=== PATIENT | female | born 1930 | race Caucasian/White ===

== ENCOUNTER 2016-09-12 14:58 | Inpatient (IN) ==
--- NOTE | 2016-09-12 15:02 | Emergency Department Note ---
Disposition Clinical Impression: Altered mental status Qualifiers: Altered mental status type: disorientation Qualified Code(s): R41.0 - Disorientation, unspecified Urinary tract infection Qualifiers: Urinary tract infection type: acute cystitis Hematuria presence: without hematuria Qualified Code(s): N30.00 - Acute cystitis without hematuria Disposition: Admitted As Inpatient Condition: Fair Altered Mental Status HPI - General Chief Complaint: ED Altered Mental Status Stated Complaint: confusion Time Seen by Provider: 09/12/16 15:00 Source: patient, family, EMS Mode of arrival: EMS Limitations: altered mental status, physical limitation, age Nursing Notes Reviewed: Yes Vital Signs Reviewed: Yes - History of Present Illness HPI Narrative: Patient has had poor increased confusion since getting up at 8 AM this morning. She has not had focal weakness or new pain. With persistence of the confusion squad was called to have her brought in for evaluation. They found her to be nonfocal on neurologic exam and had stable vital signs with a saturation of 96% on room air heart rate of 80 and a blood pressure 179/98. They did transmit to EKGs, the first at 2:47 PM and the second at 2:54 PM. These both demonstrated a sinus rhythm with a rate of around 80, axis LXXVII, DC interval 110, QT QTC 372/4:15. Chest prominent tremor/artifact. It does appear to be some LVH but no other acute changes are seen. This is on my interpretation the patient denies any specific complaint on arrival to our emergency department. She does scream with removal of the monitor tracing pads that were placed by the EMS. She does not have any apparent new injury or trauma. History is extremely unreliable from this patient. We are awaiting arrival of family for better clarification of the events of the day. 1515: Patient's son advises that he had visited her at about 7:30 in the morning and she would talk and occasional gibberish and then would seem to be normal. He states there was not a slurring of speech she came out with strings of word salad without apparent content. She does report that she still continues to have recurrent falls and did fall and hit her head on Wednesday, one week ago, when she was getting out of bed. They noted that she "seemed okay" and did not pursue other evaluation. She has not been having fevers, chills, cough, chest pain or shortness of breath. She has not been having abdominal pain, nausea, vomiting or diarrhea. She has had a normal intake for her. She is not complaining of headaches or neck pain. She has reportedly had normal urination. She recently has been doing very well with regard to her mental status and had been "walking good". Her son notes she always has chronic pain in her left low back and hip area from where she had fallen pubic fracture in January. He does not note any other changes to her recent condition. He states that she is on some Tylenol with Codeine, but that she has been on that for about 3 weeks. He denies any other change to her medications. MD complaint: altered mental status, confusion Onset (ago): hour(s) (7) Timing confirmed by: family member Pain Severity: none Consistency of Symptoms: waxing and waning, getting worse Associated symptoms: Reports: weakness. Denies: chest pain, cough, diaphoresis , fever, chills, headaches, loss of appetite, malaise, nausea/vomiting, rash, seizure, shortness of breath, syncope, foul smelling urine, difficulty walking, diarrhea, incontinence - Related Data Home Medications Medication Instructions Recorded Confirmed Docusate Sodium [Stool Softener] 100 mg PO DAILY PRN 04/10/15 09/12/16 Fluticasone Propionate Nasal 50 mcg NS DAILY PRN 04/10/15 09/12/16 [Flonase] Levothyroxine [Synthroid] 88 mcg PO 0630 02/27/16 09/12/16 Meloxicam 15 mg PO DAILY 06/22/16 09/12/16 Acetaminophen w/Cod 300-30 mg 1 each PO Q6HR 08/24/16 09/12/16 [Tylenol w/Codeine #3] Allergies Allergy/AdvReac Type Severity Reaction Status Date / Time Sulfa (Sulfonamide Allergy Rash Verified 08/24/16 14:20 Antibiotics) Limitations: ROS unobtainable due to patients medical condition Past Medical History - Past Medical History Source: old records reviewed, obtained from family, nursing notes reviewed Medical history: Reports: arthritis, dementia, osteoporosis, thyroid disease Surgical history: Reports: orthopedic, other (Wrist surgery, left hip replacement) Psychiatric history: Reports: no psych history LITERACY CONSULTANT history: Reports: no LITERACY CONSULTANT history - Social History Smoking Status: Never smoker Smokeless Tobacco Status: No Alcohol use: Reports: none Drug use: Reports: none Physical Exam - General Limitations: altered mental status, age General appearance: alert, anxious - Head Head exam: atraumatic, normocephalic, normal inspection - Eye Eye exam: Present: normal appearance, PERRL, EOMI. Absent: scleral icterus, conjunctival injection - ENT ENT exam: normal exam, normal oropharynx, mucous membranes moist - Neck Neck exam: Present: normal inspection, full ROM, trachea midline. Absent: tenderness, meningismus - Chest Chest inspection: Present: normal inspection, symmetric chest wall rise - Respiratory Respiratory exam: Present: normal lung sounds bilaterally. Absent: respiratory distress, wheezes, prolonged expiratory phase - Cardiovascular Cardiovascular exam: Present: regular rate, normal rhythm, normal heart sounds. Absent: tachycardia - Abdominal Exam Abdominal exam: Present: soft, Non-Tender, normal bowel sounds. Absent: tenderness, distention, guarding, rebound, rigidity, mass, bruit, pulsatile mass - Extremities Exam Extremities exam: Present: normal inspection, full ROM, normal capillary refill , other (Patient has a Velcro splint on her left wrist with history of previous fracture). Absent: tenderness, pedal edema - Expanded Lower Extremity Exam Neurovascular/Tendon exam: Present: normal capillary refill. Absent: motor deficit, sensory deficit, tendon deficit Gait: negative: not tested/not observed - Back Exam Back exam: Present: normal inspection, full ROM. Absent: tenderness, vertebral tenderness - Neurological Exam Neurological exam: Present: alert, CN II-XII intact. Absent: oriented X3, motor sensory deficit - Psychiatric Psychiatric exam: Present: agitated, anxious - Skin Skin exam: Present: warm, dry, intact, normal color. Absent: rash, diaphoresis , pallor Course Course Narrative: 1525: Care has been discussed with Dr. Vasquez. He is agreeable with relatively extensive evaluation in the emergency department and admission to our facility unless something is found that precludes her staying here and necessitates transfer to tertiary care. 1600: With return of all lab and testing, care has been discussed with Dr. Vasquez. He agrees with continuation of IV fluids and antibiotics with inpatient observation. Verbal orders have been obtained for her admission to the hospital. Vital Signs Temperature 100 F H 09/12/16 15:00 Pulse Rate 92 09/12/16 15:00 Respiratory Rate 18 09/12/16 15:00 Blood Pressure 193/100 09/12/16 15:00 O2 Sat by Pulse Oximetry 97 09/12/16 15:00 Temperature 100 F H 09/12/16 15:00 Pulse Rate 78 09/12/16 16:08 Respiratory Rate 18 09/12/16 16:47 Blood Pressure 155/90 09/12/16 16:47 O2 Sat by Pulse Oximetry 99 09/12/16 16:08 Oxygen Delivery Oxygen Delivery Room Air Altered Mental Status - Differential Diagnosis Likely: altered mental status, dementia, hypoglycemia, hyponatremia, psychiatric disease, sepsis - Lab Data Lab results reviewed: Yes I reviewed the patient's lab results. Result diagrams: 09/12/16 15:19 09/12/16 15:19 Lab Results 09/12/16 09/12/16 09/12/16 Range/Units 15:05 15:16 15:19 WBC 5.6 (4.3-11.1) K/mcL RBC 4.40 (3.82-4.97) M/mcL Hgb 13.4 (11.5-15.4) g/dL Hct 40.5 (35.3-44.9) % MCV 92.0 (83.0-100.0) fL MCH 30.5 (28.0-33.3) pg MCHC 33.1 (31.6-35.5) g/dL RDW 13.8 (11.5-14.5) % Plt Count 171 (140-400) K/mcL MPV 10.5 (9.4-12.4) fL Seg Neutrophils % 66.0 % Band Neutrophils % 14.0 H (0-4) % Lymphocytes % 10.0 % Monocytes % 4.0 % Basophils % 2.0 % Metamyelocytes % 4.0 H (0) % Neutrophils # 4.5 (1.6-8.9) K/mcL Lymphocytes # 0.6 (0.6-4.6) K/mcL Monocytes # 0.2 (0.0-1.3) K/mcL Basophils # 0.1 (0.0-0.2) K/mcL PT (9.4-12.1) Seconds INR APTT (26.0-36.0) Seconds Sodium (136-145) mEq/L Potassium (3.5-4.5) mEq/L Chloride (98-109) mEq/L Carbon Dioxide (19-29) mEq/L BUN (7-20) mg/dL Creatinine (0.57-1.11) mg/dL Est GFR ( Amer) (> 60) Est GFR (Non-Af Amer) (> 60) BUN/Creatinine Ratio (6-26) Glucose (70-99) mg/dL POC Glucose 99 H (58-89) Calculated Osmolality (280-300) Calcium (8.6-10.8) mg/dL Total Bilirubin (0.2-1.2) mg/dL Direct Bilirubin (0.0-0.5) mg/dL Indirect Bilirubin (0.0-1.2) mg/dL AST (5-34) Units/L ALT (0-55) Units/L Alkaline Phosphatase (38-126) Units/L Troponin I (0-0.03) ng/mL Serum Total Protein (6.0-8.3) g/dL Albumin (3.5-5.0) g/dL Globulin (2.4-3.5) g/dL Albumin/Globulin Ratio (1.1-2.2) Urine Color Yellow (Yellow) Urine Clarity Cloudy A (Clear) Urine pH 7.0 (5.0-8.0) pH Units Ur Specific [place] 1.020 (1.010-1.025) Urine Protein Trace (Neg-Trace) mg/dL Urine Glucose (UA) Normal (Normal) mg/dL Urine Ketones Negative (Negative) mg/dL Urine Blood Trace-intact H (Negative) Urine Nitrite Positive A (Negative) Urine Bilirubin Negative (Negative) Urine Urobilinogen Normal (Normal) mg/dL Ur Leukocyte Esterase Moderate H (Negative) Urine Microscopic RBC 3-5 H (0-3) per hpf Urine Microscopic WBC 15-30 H (0-3) per hpf Ur Squamous Epith Cells Few (None-Few) per lpf Urine Bacteria Many H (None-Few) per hpf Urine Mucus Few (Few) Ur Culture Indicated? YES A (NO) 09/12/16 09/12/16 09/12/16 Range/Units 15:19 15:19 15:19 WBC (4.3-11.1) K/mcL RBC (3.82-4.97) M/mcL Hgb (11.5-15.4) g/dL Hct (35.3-44.9) % MCV (83.0-100.0) fL MCH (28.0-33.3) pg MCHC (31.6-35.5) g/dL RDW (11.5-14.5) % Plt Count (140-400) K/mcL MPV (9.4-12.4) fL Seg Neutrophils % % Band Neutrophils % (0-4) % Lymphocytes % % Monocytes % % Basophils % % Metamyelocytes % (0) % Neutrophils # (1.6-8.9) K/mcL Lymphocytes # (0.6-4.6) K/mcL Monocytes # (0.0-1.3) K/mcL Basophils # (0.0-0.2) K/mcL PT 11.6 (9.4-12.1) Seconds INR 1.1 APTT 29.3 (26.0-36.0) Seconds Sodium 138 (136-145) mEq/L Potassium 4.1 (3.5-4.5) mEq/L Chloride 100 (98-109) mEq/L Carbon Dioxide 26 (19-29) mEq/L BUN 16 (7-20) mg/dL Creatinine 0.63 (0.57-1.11) mg/dL Est GFR ( Amer) > 60 (> 60) Est GFR (Non-Af Amer) > 60 (> 60) BUN/Creatinine Ratio 25 (6-26) Glucose 95 (70-99) mg/dL POC Glucose (58-89) Calculated Osmolality 287 (280-300) Calcium 10.1 (8.6-10.8) mg/dL Total Bilirubin 0.8 (0.2-1.2) mg/dL Direct Bilirubin 0.3 (0.0-0.5) mg/dL Indirect Bilirubin 0.5 (0.0-1.2) mg/dL AST 21 (5-34) Units/L ALT 11 (0-55) Units/L Alkaline Phosphatase 162 H (38-126) Units/L Troponin I 0.01 (0-0.03) ng/mL Serum Total Protein 7.4 (6.0-8.3) g/dL Albumin 3.8 (3.5-5.0) g/dL Globulin 3.6 H (2.4-3.5) g/dL Albumin/Globulin Ratio 1.1 (1.1-2.2) Urine Color (Yellow) Urine Clarity (Clear) Urine pH (5.0-8.0) pH Units Ur Specific [place] (1.010-1.025) Urine Protein (Neg-Trace) mg/dL Urine Glucose (UA) (Normal) mg/dL Urine Ketones (Negative) mg/dL Urine Blood (Negative) Urine Nitrite (Negative) Urine Bilirubin (Negative) Urine Urobilinogen (Normal) mg/dL Ur Leukocyte Esterase (Negative) Urine Microscopic RBC (0-3) per hpf Urine Microscopic WBC (0-3) per hpf Ur Squamous Epith Cells (None-Few) per lpf Urine Bacteria (None-Few) per hpf Urine Mucus (Few) Ur Culture Indicated? (NO) - Radiology Data Radiology results reviewed: Yes I reviewed the patient's radiology results. Single view chest x-ray is performed. This does not demonstrate evidence for infiltrate, effusion, pneumothorax, foreign body or heart failure. 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 The cardiac silhouette is normal. I do not see abnormality to the osseous structures of the chest. This is on my interpretation. CT head is performed. This is reviewed on bone and soft tissue windows. There is no evidence for acute intracranial bleed, shift, mass or edema. Mastoids and sinuses appear normal. There is no fracture evident. This is on my interpretation. Impressions Chest X-Ray 09/12/16 15:01 IMPRESSION: 1. No acute cardiopulmonary process. D/ / Agus Ngo MD / Agus Ngo MD Interpreting Provider: Agus Ngo MD Head CT 09/12/16 15:02 IMPRESSION: No acute intracranial abnormality. D/ / Tom Quiroz MD / Tom Quiroz MD Interpreting Provider: Tom Quiroz MD - EKG Data EKG attestation: Yes I reviewed and interpreted this EKG. EKG shows normal: sinus rhythm, axis, intervals, QRS complexes, ST-T waves Voltage: c/w LVH P waves: LAE Interpretation: no acute changes TPA Checklist - LKW: 3-4.5 hrs Add. Warnings/Precautions Patient/family understanding: The patient/family members have been counseled and understood the risk, benefit , and alternatives of treatment.
[2016-09-12 15:18] LABS: Bilirubin,Urine Negative (Negative); Blood,Urine Trace-intact (Negative); Clarity,Urine Cloudy (Clear); Color,Urine Yellow (Yellow); Glucose,Urine (UA) Normal (Normal); Ketones,Urine Negative (Negative); Leukocyte Esterase,Urine Moderate (Negative); Nitrite,Urine Positive (Negative); Protein,Urine Trace mg/dL (Neg-Trace); Urobilinogen,Urine Normal (Normal)
[2016-09-12 15:22] LABS: Bacteria,Urine Many per hpf (None-Few); Mucus,Urine Few (Few); Squamous Epithelial Cell,Urine Few per lpf (None-Few); WBC,Urine 15-30 per hpf (0-3)
[2016-09-12 15:25] LABS: Hematocrit 40.5 % (35.3-44.9); Hemoglobin 13.4 g/dL (11.5-15.4); Mean Corpuscular HGB Conc 33.1 g/dL (31.6-35.5); Mean Corpuscular Hemoglobin 30.5 pg (28.0-33.3); Mean Platelet Volume 10.5 fL (9.4-12.4); Platelet Count 171 K/mcL (140-400); Red Cell Distribution Width 13.8 % (11.5-14.5)
[2016-09-12 15:34] LABS: INR 1.1; Prothrombin Time 11.6 Seconds (9.4-12.1)
[2016-09-12 15:36] LABS: Activated Partial Thrombo Time 29.3 Seconds (26.0-36.0)
[2016-09-12] MEDS ORDERED: 0.9 % Sodium Chloride 1,000 ML IVC SCH ×2 (15:45→16:32)
[2016-09-12 15:46] LABS: Alanine Aminotransferase 11 Units/L (0-55); Albumin 3.8 g/dL (3.5-5.0); Albumin/Globulin Ratio 1.1 (1.1-2.2); Alkaline Phosphatase 162 Units/L (38-126); Aspartate Amino Transferase 21 Units/L (5-34); BUN/Creatinine Ratio 25 (6-26); Basophils # 0.1 K/mcL (0.0-0.2); Bilirubin,Direct 0.3 mg/dL (0.0-0.5); Bilirubin,Indirect 0.5 mg/dL (0.0-1.2); Bilirubin,Total 0.8 mg/dL (0.2-1.2); Blood Urea Nitrogen 16 mg/dL (7-20); Calcium 10.1 mg/dL (8.6-10.8); Carbon Dioxide 26 mEq/L (19-29); Chloride 100 mEq/L (98-109); Globulin 3.6 g/dL (2.4-3.5); Glucose 95 mg/dL (70-99); Lymphocytes # 0.6 K/mcL (0.6-4.6); Monocytes # 0.2 K/mcL (0.0-1.3); Neutrophils # 4.5 K/mcL (1.6-8.9); Osmolality,Calculated 287 (280-300); Potassium 4.1 mEq/L (3.5-4.5); Sodium 138 mEq/L (136-145); Total Protein 7.4 g/dL (6.0-8.3); eGFR For African Americans > 60 (> 60); eGFR For Non-African Americans > 60 (> 60)
[2016-09-12] MEDS ORDERED: Ondansetron 4 MG/2 ML VIAL IVP PRN (16:32)
[2016-09-12] MEDS ORDERED: Fluticasone Propionate Nasal 50 MCG/SPRAY BOTTLE NS PRN (16:32)
[2016-09-12] MEDS ORDERED: Naloxone 0.4 MG/ML INJ IVP PRN (16:32)
[2016-09-12] MEDS ORDERED: Aspirin 325 MG TABLET PO ONE (17:25)
--- NOTE | 2016-09-12 17:36 | Internal Med History&Physical ---
Date of Encounter: 09/12/16 Time of Encounter: 16:35 Assessment and Plan (1) Acute focal neurological deficit Current visit: Yes Status: Acute Family reports she was functioning completely normally last evening with new symptoms noted approximately 8 AM today. She will be given aspirin and Plavix. Carotid Doppler studies will be ordered. Further workup will be done as needed. (2) Parkinsons disease Current visit: Yes Status: Acute Will not give medication at this time. We will have PT and OT and speech therapy evaluation. (3) Hypothyroid Current visit: No Status: Chronic TSH was normal at 3.04 on 05/29/2016. Continue present dose Synthroid. Qualifiers: Hypothyroidism type: acquired Qualified Code(s): E03.9 - Hypothyroidism, unspecified (4) Urinary tract infection Current visit: Yes Status: Acute She has been started on Rocephin. We will add lactobacillus. Qualifiers: Urinary tract infection type: acute cystitis Hematuria presence: without hematuria Qualified Code(s): N30.00 - Acute cystitis without hematuria Internal Medicine - H&P: HPI Chief complaint: Falls with dysphasia Admitted From: Home Plans for Post Hospital Care: Home History of present illness: Ms. Mayberry is a 86 year old female who came to emergency room after family noted she had difficulty speaking appropriately this morning. She also seemed to have mild difficulty understanding what was spoken to her at times. After the patient rested a few hours and was found to be unimproved family brought her to emergency room. She was evaluated and felt to have UTI. She was fitted [facility] floor for ongoing care needs. The patient could not give additional useful history because of expressive dysphasia. She also appears to have receptive dysphasia frequently during examination. Her neurologic history is negative for known large distribution strokes or seizures. Family states she has been recently more forgetful and has been suspected to have mild dementia. She has had several falls at home in the past few months resulting in pelvic fracture and bilateral wrist fractures. Past Med Surg Social Fam HX - Past Medical History Medical history: arthritis, dementia, osteoporosis, thyroid disease Psychiatric history: no psych history - Past Surgical History Surgical History: orthopedic, other (Wrist surgery, left hip replacement) - Social History Smoking Status: Never smoker Smokeless Tobacco Status: No Alcohol use: none Drug use: none - Family History Daughter Living Status: Still Living Hx Family Endocrine Disorder: (thyroid) Internal Medicine - H&P: Meds Docusate Sodium [Stool Softener] 100 mg PO DAILY PRN 04/10/15 [History] Fluticasone Propionate Nasal [Flonase] 50 mcg NS DAILY PRN 04/10/15 [History] Levothyroxine [Synthroid] 88 mcg PO 0630 02/27/16 [History] Meloxicam 15 mg PO DAILY 06/22/16 [History] Acetaminophen w/Cod 300-30 mg [Tylenol w/Codeine #3] 1 each PO Q6HR 08/24/16 [ History] Allergies Sulfa (Sulfonamide Antibiotics) Allergy (Verified 08/24/16 14:20) Rash All Systems PM: A 10-system review of systems was performed and is negative for pertinent findings except as documented above in the HPI. Review of systems: Review of systems is obtained from previous records and family. Gen.: Her weight has decreased from 53.099 kg September 2013 to 50.349 kg at present Cardiovascular: She has not had hypertension heart failure MA DVT or pulmonary embolus. Respiratory: She is a lifelong nonsmoker and has no documented chronic lung disease GI: There is no known disorder of her liver gallbladder or exocrine pancreas : She has had UTIs in the past but no other significant kidney or bladder disorders Neurologic: As per history of present illness Endocrine: She has hypothyroidism and is been told she has hyperlipidemia in the past. She does not have known diabetes. Hematology/oncology: There is no known blood disorders cancers or anemia Psychiatric: There is no known anxiety depression or other mental health issues Musk skeletal: She has DJD but no known gout or osteoporosis. She had left hip fracture repair approximately 2007. - Constitutional Vitals: Temp Pulse Resp BP Pulse Ox 100 F H 78 18 155/90 99 09/12/16 15:00 09/12/16 16:08 09/12/16 16:47 09/12/16 16:47 09/12/16 16:08 Exam: Gen.: She is well-developed lean female in bed who appears in minimal distress at rest HEENT: Head is atraumatic and normocephalic. Eyes: EOMI. There is no scleral icterus. Mouth: Mucosa is moist. Neck: Supple and nontender. There is no thyromegaly or adenopathy noted. Heart: Regular without murmurs gallops or ectopics Lungs: No wheezes or crackles are heard. Abdomen: Soft and nontender. No masses or guarding are noted. Extremities: There is no cyanosis edema or clubbing noted. Dorsalis pedis and posttibial pulses are trace palpable bilaterally. She has DJD changes of her hands and feet. Neurologic: Mental status: She is very awake and alert. She has variable receptive aphasia and expressive aphasia during the time of examination. Cranial nerves: Smile is symmetric. Forehead wrinkles bilaterally. Tongue protrudes midline. EOMI. Motor: There is no pronator drift. She is able to lift both legs off the bed. She has cogwheeling and rigidity on passive range of motion of her wrists and elbows. Cerebellar: Finger to nose is intact bilaterally. Reflexes: Babinski testing shows downgoing toes bilaterally. She has a positive Myerson sign. Skin: Warm and dry Internal Med - H&P Results - Labs CBC & Chem 7: 09/12/16 15:19 09/12/16 15:19
[2016-09-12] MEDS: *HR* Acetaminophen w/Cod 300-30 mg 1 TAB TABLET PO SCH (18:27)
[2016-09-12] MEDS: 0.45 % Sodium Chloride w/KCl 20 MEQ/1,000 ML MLS IVC SCH (18:30)
[2016-09-13] MEDS: *HR* Acetaminophen w/Cod 300-30 mg 1 TAB TABLET PO SCH ×5 (06:19→21:05)
[2016-09-13] MEDS: *HR* Enoxaparin 40 MG/0.4 ML SYRINGE SQ SCH (07:02)
[2016-09-13] MEDS: 0.45 % Sodium Chloride w/KCl 20 MEQ/1,000 ML MLS IVC SCH (08:14)
--- NOTE | 2016-09-13 10:00 | Internal Med Progress Note ---
Date of Encounter: 09/13/16 Time of Encounter: 09:45 - Assessment and plan (1) Acute focal neurological deficit Current Visit: Yes Status: Resolved Assessment and plan: September 13. Resolved. It appears to have been a TIA. Will continue Plavix. Carotid Doppler studies were ordered. Therapy evaluations will be done tomorrow. She is willing to go to [facility] for further rehabilitation therapy and possible permanent stay in assisted living. (2) Parkinsons disease Current Visit: Yes Status: Acute Assessment and plan: September 13. Will not initiate medication at this time. (3) Hypothyroid Current Visit: No Status: Chronic Assessment and plan: September 13. TSH was normal at 3.04 on 05/29/2016. Continue present dose Synthroid Qualifiers: Hypothyroidism type: acquired Qualified Code(s): E03.9 - Hypothyroidism, unspecified (4) Urinary tract infection Current Visit: Yes Status: Acute Assessment and plan: September 13. Continue Rocephin and lactobacillus. Urine culture report pending Qualifiers: Urinary tract infection type: acute cystitis Hematuria presence: without hematuria Qualified Code(s): N30.00 - Acute cystitis without hematuria - Subjective Interval history: September 13. She has no new complaints - Constitutional Vitals: Temp Pulse Resp BP Pulse Ox 97.8 F 69 18 182/92 98 09/13/16 07:25 09/13/16 07:25 09/13/16 07:25 09/13/16 07:25 09/13/16 07:25 Exam: Dysphasia has completely resolved and she appears back to her baseline in speech and comprehension. Her thought processes are appropriate. She has no focal motor deficits on observation of random movements. I reviewed her medications and lab results. Internal Medicine: Result - Labs CBC & Chem 7: 09/12/16 15:19 09/12/16 15:19 - ABG Interpretation ABG results: PT/INR, D-dimer PT 11.6 Seconds (9.4-12.1) 09/12/16 15:19 Consult Discharge Plan - Plan Referrals: NONE,PCP [Primary Care Provider] - 1 week
[2016-09-14] MEDS: *HR* Acetaminophen w/Cod 300-30 mg 1 TAB TABLET PO SCH (06:25)
[2016-09-14] MEDS: *HR* Enoxaparin 40 MG/0.4 ML SYRINGE SQ SCH (06:28)
[2016-09-14] MEDS ORDERED: levoFLOXacin 500 MG TABLET PO SCH ×2 (10:15)
--- NOTE | 2016-09-14 10:29 | Internal Med Progress Note ---
Date of Encounter: 09/14/16 Time of Encounter: 10:20 - Assessment and plan (1) Acute focal neurological deficit Current Visit: Yes Status: Resolved Assessment and plan: September 13. Resolved. It appears to have been a TIA. Will continue Plavix. Carotid Doppler studies were ordered. Therapy evaluations will be done tomorrow. She is willing to go to [facility] for further rehabilitation therapy and possible permanent stay in assisted living. September 14. Remains resolved. Continue Plavix. Carotid Doppler studies will be done later today. (2) Parkinsons disease Current Visit: Yes Status: Acute Assessment and plan: September 13. Will not initiate medication at this time. (3) Hypothyroid Current Visit: No Status: Chronic Assessment and plan: September 13. TSH was normal at 3.04 on 05/29/2016. Continue present dose Synthroid Qualifiers: Hypothyroidism type: acquired Qualified Code(s): E03.9 - Hypothyroidism, unspecified (4) Urinary tract infection Current Visit: Yes Status: Acute Assessment and plan: September 13. Continue Rocephin and lactobacillus. Urine culture report pending September 14. Urine culture showed Escherichia coli. Will change to oral Levaquin. Qualifiers: Urinary tract infection type: acute cystitis Hematuria presence: without hematuria Qualified Code(s): N30.00 - Acute cystitis without hematuria - Subjective Interval history: September 13. She has no new complaints September 14. She has no new complaints - Constitutional Vitals: Temp Pulse Resp BP Pulse Ox 98.3 F 91 16 171/90 96 09/14/16 06:28 09/14/16 09:34 09/14/16 06:28 09/14/16 06:28 09/14/16 09:34 Exam: She is sitting in a chair at bedside resting comfortably. Her speech remains without dysphasia. She is generally appropriate in conversation but has evidence of slight confusion. She is tolerating oral intake adequately. I reviewed her medications and lab results including urine culture. Internal Medicine: Result - Labs CBC & Chem 7: 09/12/16 15:19 09/12/16 15:19 - ABG Interpretation ABG results: PT/INR, D-dimer PT 11.6 Seconds (9.4-12.1) 09/12/16 15:19 Consult Discharge Plan - Plan Referrals: NONE,PCP [Primary Care Provider] - 1 week
--- NOTE | 2016-09-14 15:16 | Electrocardiograph Report ---
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
[2016-09-14] MEDS: *HR* Acetaminophen w/Cod 300-30 mg 1 TAB TABLET PO PRN (22:33)
[2016-09-15] MEDS: *HR* Acetaminophen w/Cod 300-30 mg 1 TAB TABLET PO PRN (05:23)
[2016-09-15] MEDS: *HR* Enoxaparin 40 MG/0.4 ML SYRINGE SQ SCH (05:24)
[2016-09-15 13:26] VITALS: BP 133/65
--- NOTE | 2016-09-15 14:13 | Discharge Summary ---
Date of Encounter: 09/15/16 Time of Encounter: 14:00 - Discharge Diagnosis (1) TIA (transient ischemic attack) Priority: Primary Status: Resolved Qualifiers: Transient cerebral ischemia type: unspecified Qualified Code(s): G45.9 - Transient cerebral ischemic attack, unspecified (2) Parkinsons disease Priority: Secondary Status: Chronic (3) Hypothyroid Priority: Secondary Status: Chronic Qualifiers: Hypothyroidism type: acquired Qualified Code(s): E03.9 - Hypothyroidism, unspecified (4) Urinary tract infection Priority: Secondary Status: Acute Qualifiers: Urinary tract infection type: acute cystitis Hematuria presence: without hematuria Qualified Code(s): N30.00 - Acute cystitis without hematuria - Discharge Medications Home Medications: Docusate Sodium [Stool Softener] 100 mg PO DAILY PRN 04/10/15 [History] Levothyroxine [Synthroid] 88 mcg PO 0630 02/27/16 [History] Acetaminophen w/Cod 300-30 mg [Tylenol w/Codeine #3] 1 each PO Q6HR 08/24/16 [ History] Clopidogrel [Plavix] 75 mg PO DAILY tab 09/15/16 [Rx] Allergies/Adverse Reactions: Allergies Sulfa (Sulfonamide Antibiotics) Allergy (Verified 08/24/16 14:20) Rash Date of admission: 09/12/16 17:29 Primary care physician: PCP NONE Consults: 09/12/16 17:49 Consult to C++ Quant Developer [CONS] Routine Reason for SW Consult: possible ECF placement - Patient Status Disposition: Transfer SNF Condition: Fair Functional capacity at discharge: uses cane/walker Overall status at discharge: patient is progressing back to baseline - Discharge Instructions Instructions: Urinary Tract Infection in Women (DC) - Diet and Activity Activity: as per physical therapy Diet: advance to your usual diet Hospital course: Ms. Mayberry is a 86 year old female who came to emergency room after family noted she had difficulty speaking appropriately this morning. She also seemed to have mild difficulty understanding what was spoken to her at times. After the patient rested a few hours and was found to be unimproved family brought her to emergency room. She was evaluated and felt to have UTI. She was fitted Med[facility] floor for ongoing care needs. Initial orders were written by the emergency room physician. I saw her on September 12 and performed a history and physical. She was given aspirin and Plavix when I saw her and had resolution of TIA symptoms by the following morning. Carotid Doppler studies were ordered with final report pending at time of discharge. She had no further episodes of TIA. She had physical therapy and occupational therapy evaluations and ongoing interventions during hospitalization. She made satisfactory progress but it was felt she would benefit from ongoing therapy. Urine culture returned showing Escherichia coli. She was treated during hospitalization with Rocephin initially and later Levaquin. She will not continue on antibiotics at discharge. On September 15 arrangements were complete for her to be discharged to [facility] for rehabilitation therapy prior to returning to independent living. She will follow with me there. - Time Spent with Patient Total time spent providing and/or coordinating discharge services: - Constitutional Vitals: Temp Pulse Resp BP Pulse Ox 97.9 F 90 16 133/65 97 09/15/16 13:25 09/15/16 13:25 09/15/16 13:25 09/15/16 13:25 09/15/16 13:25
--- NOTE | 2016-09-15 14:18 | Physician Discharge Referral ---
ExtendedCare Referral Info Transfer To: [facility] Provider in Charge: Pedro Provider in Charge after Transfer: PCP (Pedro) - Diagnosis (1) TIA (transient ischemic attack) Priority: Primary Status: Resolved (2) Parkinsons disease Priority: Secondary Status: Chronic (3) Hypothyroid Priority: Secondary Status: Chronic (4) Urinary tract infection Priority: Secondary Status: Resolved Prognosis: Good Aware of Diagnosis: Patient, Family Aware of Prognosis: Patient, Family - Transfer Medications Home Medications: Docusate Sodium [Stool Softener] 100 mg PO DAILY PRN 04/10/15 [History] Levothyroxine [Synthroid] 88 mcg PO 0630 02/27/16 [History] Acetaminophen w/Cod 300-30 mg [Tylenol w/Codeine #3] 1 each PO Q6HR 08/24/16 [ History] Clopidogrel [Plavix] 75 mg PO DAILY tab 09/15/16 [Rx] Allergies/Adverse Reactions: Allergies Sulfa (Sulfonamide Antibiotics) Allergy (Verified 08/24/16 14:20) Rash - Respiratory Orders Smoking Cessation: Smoking cessation has been advised. For more information, call the [place] Tobacco Quit Line at 1-841-TKBG-NOW. - Mobility Orders Ambulate - Rehabiliation Orders Rehab Potential: Good Rehab Orders: Evaluation for Physical Therapy, Evaluation for Occupational Therapy - Diet Orders Regular CERTIFICATION: I certify that the transfer of the above named patient to an Extended Care Facility is necessary for the continuing treatment of the diagnosis listed. The above information is true and accurate reflection of patient's current condition. Confidential - Redisclosure prohibited without a patient's written consent.
--- NOTE | 2016-09-15 23:08 | Carotid Imaging Report ---
Carotid Duplex Patient Name:Estela Mayberry Order Number:[id number] Procedure Date:09/15/2016 Date:1930ge:86 yrs Gender:Female Lt BP:158 / 81 mmHg Rt.BP:157 / 80 mmHgHeart Rate: Location:[facility] Room #: [facility]41A Nail Assembly Machine Operator:Angy Hutchinson, RVT, RDCS Referring MD:Gordon Vasquez MD community health advisor:None Reading MD:Manny Hernandez MD , FACS Primary Indications:left hemisphere TIA symptoms Risk Factors Yes/No Hypertension No Diabetes No Hypercholesterolemia No Smoking Current No Impressions: Findings: Right carotid system has nonstenotic plaque. Findings: Left mid ICA has a moderate, 40-59% stenosis. Findings Carotid Duplex: Right: The right proximal common carotid artery has a PSV of 55 cm/s and a EDV of 6 cm/s. The right mid common carotid artery has a PSV of 59 cm/s and a EDV of 8 cm/s. The right distal common carotid artery has a PSV of 55 cm/s and a EDV of 9 cm/s. The right bifurcation has a PSV of 25 cm/s and a EDV of 6 cm/s. There is smooth heterogeneous plaque. The right proximal internal carotid artery has a PSV of 43 cm/s and a EDV of 8 cm/s. There is smooth heterogeneous plaque. The right mid internal carotid artery has a PSV of 105 cm/s and a EDV of 22 cm/s. The right distal internal carotid artery has a PSV of 106 cm/s and a EDV of 21 cm/s. The right eca has a PSV of 71 cm/s and a EDV of 7 cm/s. The right vertebral artery has a PSV of 44 cm/s and a EDV of 6 cm/s. Left: The left proximal common carotid artery has a PSV of 56 cm/s and a EDV of 9 cm/s. The left mid common carotid artery has a PSV of 57 cm/s and a EDV of 9 cm/s. The left distal common carotid artery has a PSV of 68 cm/s and a EDV of 10 cm/s. The left bifurcation has a PSV of 47 cm/s and a EDV of 7 cm/s. There is smooth heterogeneous plaque. The left proximal internal carotid artery has a PSV of 39 cm/s and a EDV of 8 cm/s. There is smooth heterogeneous plaque. There is 40-59% stenosis in the left mid internal carotid artery with a PSV of 140 cm/s and a EDV of 24 cm/s. There is smooth heterogeneous plaque. The left distal internal carotid artery has a PSV of 46 cm/s and a EDV of 3 cm/s. The left eca has a PSV of 62 cm/s. The left vertebral artery has a PSV of 40 cm/s and a EDV of 8 cm/s. Carotid Results Right PSV EDV Assessment Proximal CCA 55 6 Mid CCA 59 8 Distal CCA 55 9 Bifurcation 25 6 Non Stenotic Plaque Proximal ICA 43 8 Non Stenotic Plaque Mid ICA 105 22 Distal ICA 106 21 ECA 71 7 Vertebral Artery 44 6 Left PSV EDV Assessment Proximal CCA 56 9 Mid CCA 57 9 Distal CCA 68 10 Bifurcation 47 7 Non Stenotic Plaque Proximal ICA 39 8 Non Stenotic Plaque Mid ICA 140 24 40-59% stenosis Distal ICA 46 3 ECA 62 0 Vertebral Artery 40 8 Ratio's Right ICA/CCA Ratio: 1.80 Left ICA/CCA Ratio: 2.46 Updated by Manny Hernandez MD, FACS on 09/15/2016 11:01:45 PM Manny Hernandez MD electronically signed on 09/15/2016 11:02:02 PM with status of Final
== END 2016-09-15 16:16 | DRG 69 ==
LOC: EMEROOPIK 14:58 → INPPIK 14:58
PROVIDERS: ADMIT Internal Medicine; ATTEND Internal Medicine

== ENCOUNTER 2018-03-22 13:12 | Observation (INO) ==
--- NOTE | 2018-03-22 13:48 | Emergency Department Note ---
Disposition Clinical Impression: TIA (transient ischemic attack) Disposition: Admitted As Inpatient Condition: Fair Referrals: Gordon Vasquez MD [Primary Care Provider] - Forms: ED Satisfaction Letter, Work/School Release Time of Disposition: 16:11 Neuro HPI - General Chief Complaint: ED General Medical Stated Complaint: possible TIA Time Seen by Provider: 03/22/18 13:34 Source: patient, EMS, other Mode of arrival: EMS Limitations: no limitations Nursing Notes Reviewed: Yes Vital Signs Reviewed: Yes - History of Present Illness Onset of Symptoms Date: 03/22/18 Onset of Symptoms Time: 12:15 Symptom Onset Unknown: Yes Timing confirmed by: caregiver Location: speech, dysarthria History of same: Yes (2 weeks ago had a workup for same) Severity: moderate, now resolved (Almost completely resolved. Occasionally the patient puts the wrong words in place) Symptoms Improving: Yes Improves with: time Context: sudden onset On Anticoagulants: No (Only taking aspirin) Associated symptoms: Reports: denies other symptoms Treatments Prior to Arrival: none (EMS states that when they got there they felt like her speech was normal and she was not confused.) - Related Data Home Medications: Home Medications Medication Instructions Recorded Confirmed Docusate Sodium [Stool Softener] 100 mg PO BID PRN 04/10/15 03/04/17 Acetaminophen [Non-Aspirin] 650 mg PO Q4H PRN 03/04/17 03/04/17 Levothyroxine [Synthroid] 125 mcg PO 0630 03/04/17 03/04/17 Magnesium Hydroxide [Milk of 30 ml PO DAILY PRN 03/04/17 03/04/17 Magnesia] Ondansetron HCl [Zofran] 4 mg PO Q4H PRN 03/04/17 03/04/17 Aspirin [Lo-Dose Aspirin EC] 81 mg PO DAILY 03/22/18 03/22/18 Bumetanide [Bumex] 0.5 mg PO DAILY 03/22/18 03/22/18 Gluc/Ap-MSM#2/C/D3/Uziel/Born 1 each PO BID 03/22/18 03/22/18 [Mpbludboom-Bwcfhlnykzq-AJJ Tab] Allergies/Adverse Reactions: Allergies Allergy/AdvReac Type Severity Reaction Status Date / Time Sulfa (Sulfonamide Allergy Rash Verified 03/22/18 13:17 Antibiotics) All systems ED: reviewed and negative except as stated. Constitutional: Denies: fever, chills Eyes: Denies: eye pain, eye discharge, vision change ENT ED: Denies: ear pain, throat pain, congestion Cardiovascular: Denies: chest pain, palpitations Respiratory: Denies: cough, dyspnea, wheezes Gastrointestinal: Denies: abdominal pain, nausea, vomiting, diarrhea Musculoskeletal: Denies: back pain, neck pain Integumentary: Denies: rash Neurological: Denies: headache, weakness, numbness Past Medical History - Past Medical History Attestation: Yes The following information was validated with the patient. Source: patient, old records reviewed, nursing notes reviewed Medical history: Reports: arthritis, dementia, osteoporosis, thyroid disease, TIA Surgical history: Reports: orthopedic, other (Hip fracture repair), other (Bladder surgery) Psychiatric history: Reports: no psych history CURING SUPERVISOR history: Reports: no CURING SUPERVISOR history - Social History Smoking Status: Never smoker Smokeless Tobacco Status: No Alcohol use: Reports: none Drug use: Reports: none Physical Exam - General Limitations: no limitations General appearance: alert, in no apparent distress - Head Head exam: atraumatic, normocephalic, normal inspection - Eye Eye exam: Present: normal appearance, PERRL, EOMI. Absent: scleral icterus, conjunctival injection - ENT ENT exam: normal exam, normal oropharynx, mucous membranes moist, TM's normal bilaterally, normal external ear exam - Neck Neck exam: Present: normal inspection, full ROM, trachea midline. Absent: meningismus, thyromegaly - Chest Chest inspection: Present: normal inspection, symmetric chest wall rise. Absent: tenderness - Respiratory Respiratory exam: Present: normal lung sounds bilaterally. Absent: respiratory distress, wheezes - Cardiovascular Cardiovascular exam: Present: regular rate, normal rhythm, normal heart sounds - Abdominal Exam Abdominal exam: Present: soft, Non-Tender, normal bowel sounds. Absent: mass - Extremities Exam Extremities exam: Present: normal inspection. Absent: tenderness, pedal edema - Neurological Exam Neurological exam: Present: alert, oriented X3, CN II-XII intact, reflexes normal. Absent: motor sensory deficit - Psychiatric Psychiatric exam: Present: normal affect, normal mood - Skin Skin exam: Present: warm, dry. Absent: rash Course Course Narrative: Patient presents with possible TIA. At the [facility] she had abrupt onset of confusion and garbled speech. EMS reports that they did not identify anything. Here in this emergency department the patient's neurologic examination mental status are normal. The only problem I am identifying is that occasionally she puts the wrong word in the sentence and occasionally has trouble finding the right word for the sentence. She will then give up and just rephrased the statements of the information is transmitted understandably. She was seen 2 weeks ago for similar episode. It sound like the exact same set of symptoms when I read the ER chart from before. Symptoms that also completely resolved by the time the patient got to the ER at that time. CAT scan was negative, as was the rest of the workup. She was discharged to be treated on an outpatient basis. I am going to repeat the workup only because she seems to be having some word use issues. I do not know if this is new for the patient or not so we will plate safe. Disposition will be based on diagnostic results and reevaluation. - Reevaluation(s) Reevaluation #1: Patient seems to be back to normal at this point. Her conversation is normal at this point. No focal neuro findings on reexamination either. CT is nonacute. Lab workup is fine. I called the hospitalist, Dr. Vasquez, who was also the physician who requested her to be transferred here to the ER. He knows her very well. This difficulty with her speech is something new for the patient. He recommends admission to the hospital for observation. He gave verbal orders including addition of Plavix to her treatment regimen. We will arrange to have the patient admitted. Time: 16:11 - Consultations Consultation #1: Dr. Vasquez, hospitalist - Dr. Vasquez is very familiar with the patient. He recommends admitting the patient for observation. We will give her dose of Plavix here and continue her on Plavix every day and arrange for carotid Doppler. Time: 16:10 Vital Signs Temperature 98.5 F 03/22/18 13:18 Pulse Rate 83 03/22/18 13:18 Respiratory Rate 18 03/22/18 13:18 Blood Pressure 135/69 03/22/18 13:18 O2 Sat by Pulse Oximetry 94 03/22/18 13:18 Temperature 98.5 F 03/22/18 13:18 Pulse Rate 76 03/22/18 16:01 Respiratory Rate 20 03/22/18 16:01 Blood Pressure 133/62 03/22/18 16:01 O2 Sat by Pulse Oximetry 93 03/22/18 16:01 Oxygen Delivery Oxygen Delivery Room Air Neuro Symptoms/Deficit - Medical Records Medical records reviewed: Yes I reviewed the patient's medical records. - Lab Data Lab results reviewed: Yes I reviewed the patient's lab results. Result diagrams: 03/22/18 14:08 03/22/18 14:08 Lab Results 03/22/18 03/22/18 03/22/18 Range/Units 14:08 14:08 14:08 WBC 5.1 (4.3-11.1) K/mcL RBC 4.70 (3.82-4.97) M/mcL Hgb 14.0 (11.5-15.4) g/dL Hct 43.8 (35.3-44.9) % MCV 93.2 (83.0-100.0) fL MCH 29.8 (28.0-33.3) pg MCHC 32.0 (31.6-35.5) g/dL RDW 13.7 (11.5-14.5) % Plt Count 199 (140-400) K/mcL MPV 11.1 (9.4-12.4) fL Immature Gran % 0.4 (0-4) % Seg Neutrophils % 48.3 % Lymphocytes % 18.7 % Monocytes % 31.0 % Eosinophils % 1.2 % Basophils % 0.4 % Neutrophils # 2.5 (1.6-8.9) K/mcL Lymphocytes # 1.0 (0.6-4.6) K/mcL Monocytes # 1.6 H (0.0-1.3) K/mcL Eosinophils # 0.1 (0.0-0.6) K/mcL Basophils # 0.0 (0.0-0.2) K/mcL Platelet Estimate Normal (Normal) PT 11.5 (9.4-12.1) Seconds INR 1.0 APTT 30.5 (26.0-36.0) Seconds Sodium 140 (136-145) mEq/L Potassium 3.9 (3.5-5.1) mEq/L Chloride 101 (98-107) mEq/L Carbon Dioxide 32 H (23-29) mEq/L BUN 19 (8-23) mg/dL Creatinine 0.71 (0.60-1.20) mg/dL Est GFR ( Amer) > 60 (> 60) Est GFR (Non-Af Amer) > 60 (> 60) BUN/Creatinine Ratio 27 H (6-26) Glucose 95 (70-105) mg/dL Calculated Osmolality 292 (280-300) Calcium 9.5 (8.6-10.3) mg/dL Troponin I < 0.03 (< 0.04) ng/mL B-Natriuretic Peptide (Less than 100) pg/mL Urine Color (Yellow) Urine Clarity (Clear) Urine pH (5.0-8.0) pH Units Ur Specific [place] (1.010-1.025) Urine Protein (Neg-Trace) mg/dL Urine Glucose (UA) (Normal) mg/dL Urine Ketones (Negative) mg/dL Urine Blood (Negative) Urine Nitrite (Negative) Urine Bilirubin (Negative) Urine Urobilinogen (Normal) mg/dL Ur Leukocyte Esterase (Negative) Urine Microscopic RBC (0-3) per hpf Urine Microscopic WBC (0-3) per hpf Ur Squamous Epith Cells (None-Few) per lpf Ur Renal Epithelial Cell (None-Few) per hpf Amorphous Sediment (Few) Ur Culture Indicated? (NO) 03/22/18 03/22/18 Range/Units 14:08 15:25 WBC (4.3-11.1) K/mcL RBC (3.82-4.97) M/mcL Hgb (11.5-15.4) g/dL Hct (35.3-44.9) % MCV (83.0-100.0) fL MCH (28.0-33.3) pg MCHC (31.6-35.5) g/dL RDW (11.5-14.5) % Plt Count (140-400) K/mcL MPV (9.4-12.4) fL Immature Gran % (0-4) % Seg Neutrophils % % Lymphocytes % % Monocytes % % Eosinophils % % Basophils % % Neutrophils # (1.6-8.9) K/mcL Lymphocytes # (0.6-4.6) K/mcL Monocytes # (0.0-1.3) K/mcL Eosinophils # (0.0-0.6) K/mcL Basophils # (0.0-0.2) K/mcL Platelet Estimate (Normal) PT (9.4-12.1) Seconds INR APTT (26.0-36.0) Seconds Sodium (136-145) mEq/L Potassium (3.5-5.1) mEq/L Chloride (98-107) mEq/L Carbon Dioxide (23-29) mEq/L BUN (8-23) mg/dL Creatinine (0.60-1.20) mg/dL Est GFR ( Amer) (> 60) Est GFR (Non-Af Amer) (> 60) BUN/Creatinine Ratio (6-26) Glucose (70-105) mg/dL Calculated Osmolality (280-300) Calcium (8.6-10.3) mg/dL Troponin I (< 0.04) ng/mL B-Natriuretic Peptide 38 (Less than 100) pg/mL Urine Color Yellow (Yellow) Urine Clarity Clear (Clear) Urine pH 7.0 (5.0-8.0) pH Units Ur Specific [place] 1.020 (1.010-1.025) Urine Protein Negative (Neg-Trace) mg/dL Urine Glucose (UA) Normal (Normal) mg/dL Urine Ketones Negative (Negative) mg/dL Urine Blood Trace-intact H (Negative) Urine Nitrite Negative (Negative) Urine Bilirubin Negative (Negative) Urine Urobilinogen Normal (Normal) mg/dL Ur Leukocyte Esterase Trace H (Negative) Urine Microscopic RBC 0-3 (0-3) per hpf Urine Microscopic WBC 0-3 (0-3) per hpf Ur Squamous Epith Cells Few (None-Few) per lpf Ur Renal Epithelial Cell Few (None-Few) per hpf Amorphous Sediment Few (Few) Ur Culture Indicated? YES A (NO) - Radiology Data Radiology results reviewed: Yes I reviewed the patient's radiology results. - EKG Data EKG attestation: Yes I reviewed and interpreted this EKG. EKG results narrative: Twelve-lead EKG performed at 1320 2 PM. Ordered, reviewed and interpreted by ED physician shows sinus rhythm at a rate of 82. Normal axis. Good hour progression across precordium. No acute ischemic changes. Intervals are within normal limits. TPA Checklist - LKW: 3-4.5 hrs Add. Warnings/Precautions Patient/family understanding: The patient/family members have been counseled and understood the risk, benefit, and alternatives of treatment.
[2018-03-22 14:21] LABS: Basophils % 0.4 %; Eosinophils # 0.1 K/mcL (0.0-0.6); Eosinophils % 1.2 %; Hematocrit 43.8 % (35.3-44.9); Immature Granulocytes % 0.4 % (0-4); Lymphocytes % 18.7 %; Mean Corpuscular Hemoglobin 29.8 pg (28.0-33.3); Mean Corpuscular Volume 93.2 fL (83.0-100.0); Mean Platelet Volume 11.1 fL (9.4-12.4); Monocytes # 1.6 K/mcL (0.0-1.3); Neutrophils # 2.5 K/mcL (1.6-8.9); Platelet Count 199 K/mcL (140-400); Red Cell Distribution Width 13.7 % (11.5-14.5); Segmented Neutrophils % 48.3 %
--- NOTE | 2018-03-22 14:21 | Electrocardiograph Report ---
[place] [id number] Test Date: 2018-03-22 Pat Name: Estela Mayberry Department: EDP-14 Room: Gender: F Catering Barista: : 1930 Requested By: Sanjay Weston Order Number: [id number] Reading MD: Laurel Altman Measurements Intervals [place] Rate: 82 P: 77 NC: 143 QRS: 70 QRSD: 77 T: 79 QT: 391 QTc: 457 Interpretive Statements Sinus rhythm Abnormal R-wave progression, early transition Minimal ST depression, diffuse leads Electronically Signed On 03-22-2018 14:20:05 EST by Laurel Altman
[2018-03-22 14:22] LABS: Prothrombin Time 11.5 Seconds (9.4-12.1)
[2018-03-22 14:24] LABS: Activated Partial Thrombo Time 30.5 Seconds (26.0-36.0)
[2018-03-22 14:28] LABS: BUN/Creatinine Ratio 27 (6-26); Blood Urea Nitrogen 19 mg/dL (8-23); Calcium 9.5 mg/dL (8.6-10.3); Carbon Dioxide 32 mEq/L (23-29); Chloride 101 mEq/L (98-107); Glucose 95 mg/dL (70-105); Osmolality,Calculated 292 (280-300); Potassium 3.9 mEq/L (3.5-5.1); Sodium 140 mEq/L (136-145); eGFR For Non-African Americans > 60 (> 60)
[2018-03-22 14:33] LABS: Troponin I < 0.03 ng/mL (< 0.04)
[2018-03-22 14:51] LABS: Platelet Estimate Normal (Normal)
[2018-03-22 15:34] LABS: Bilirubin,Urine Negative (Negative); Blood,Urine Trace-intact (Negative); Clarity,Urine Clear (Clear); Color,Urine Yellow (Yellow); Glucose,Urine (UA) Normal (Normal); Ketones,Urine Negative (Negative); Leukocyte Esterase,Urine Trace (Negative); Nitrite,Urine Negative (Negative); Protein,Urine Negative (Neg-Trace); Urobilinogen,Urine Normal (Normal)
[2018-03-22 15:39] LABS: RBC,Urine 0-3 per hpf (0-3); Squamous Epithelial Cell,Urine Few per lpf (None-Few); WBC,Urine 0-3 per hpf (0-3)
[2018-03-22 15:40] LABS: Amorphous Sediment,Urine Few (Few); Renal Epithelial Cells,Urine Few per hpf (None-Few)
[2018-03-22] MEDS ORDERED: Naloxone 0.4 MG/ML INJ IVP PRN (19:03)
[2018-03-22] MEDS ORDERED: Acetaminophen 325 MG TABLET PO SCH (20:39)
[2018-03-22] MEDS: GLUCOSAMINE-CHONDROITIN PO SCH (21:01)
[2018-03-22] MEDS ORDERED: Acetaminophen 325 MG TABLET PO PRN (21:04)
[2018-03-22] MEDS: ALPRAZolam 0.5 MG TABLET PO ONE ×2 (23:36→23:50)
[2018-03-22] MEDS ORDERED: *HR* LORazepam 2 MG/ML VIAL IVP PRN (23:49)
[2018-03-22] MEDS: *HR* LORazepam 2 MG/ML VIAL IVP STA (23:50)
[2018-03-23] MEDS: *HR* LORazepam 2 MG/ML VIAL IVP STA (00:09)
[2018-03-23 08:12] VITALS: BP 173/77
[2018-03-23] MEDS ORDERED: Bumetanide 1 MG TABLET PO SCH (09:00)
[2018-03-23] MEDS ORDERED: Aspirin Enteric Coated 81 MG Tablet PO SCH (09:00)
[2018-03-23] MEDS: GLUCOSAMINE-CHONDROITIN PO SCH (09:09)
--- NOTE | 2018-03-23 15:33 | Internal Med History&Physical ---
Date of Encounter: 03/23/18 Time of Encounter: 15:05 Assessment and Plan (1) TIA (transient ischemic attack) Current visit: Yes Status: Acute Carotid Doppler studies were ordered through emergency room. Plavix will be restarted and aspirin will be continued. (2) Hypothyroid Current visit: No Status: Chronic TSH was normal at 0.892 on 12/22/2017. Continue present dose Synthroid. Qualifiers: Hypothyroidism type: acquired Qualified Code(s): E03.9 - Hypothyroidism, unspecified Internal Medicine - H&P: HPI Chief complaint: Slurred speech Admitted From: Emergency Dept Plans for Post Hospital Care: Transfer [facility] History of present illness: Ms. Mayberry is a 87 year old female who was sent to emergency room after [facility] staff reported her to have had slurred speech. No other focal deficits were noted. She was evaluated in emergency room and was felt to have possible TIA. She was admitted to [facility] floor for ongoing care needs. She had a previous TIA September 2016 with similar presentation. Carotid Doppler studies were unremarkable. She was placed on aspirin and Plavix and had no recurrence until present time. Plavix was discontinued at an unknown time since September 2016 hospitalization. She denies large distribution strokes or seizures. Neurologic history is pertinent for slight memory loss with possible early mild dementia. Past Med Surg Social Fam HX - Past Medical History Medical history: arthritis, dementia, osteoporosis, thyroid disease, TIA Additional medical history: parkinsons Psychiatric history: no psych history - Past Surgical History Surgical History: orthopedic, other, other Additional surgical history: bladder sx - Social History Smoking Status: Never smoker Smokeless Tobacco Status: No Alcohol use: none Drug use: none - Family History Daughter Living Status: Still Living Hx Family Endocrine Disorder: (thyroid) Internal Medicine - H&P: Meds Docusate Sodium [Stool Softener] 100 mg PO BID PRN 04/10/15 [History] Acetaminophen [Non-Aspirin] 650 mg PO Q4H PRN 03/04/17 [History] Levothyroxine [Synthroid] 125 mcg PO 0630 03/04/17 [History] Magnesium Hydroxide [Milk of Magnesia] 30 ml PO DAILY PRN 03/04/17 [History] Ondansetron HCl [Zofran] 4 mg PO Q4H PRN 03/04/17 [History] Aspirin [Lo-Dose Aspirin EC] 81 mg PO DAILY 03/22/18 [History] Bumetanide [Bumex] 0.5 mg PO DAILY 03/22/18 [History] Gluc/Ap-MSM#2/C/D3/Uziel/Born [Ggqzssyngq-Fqervwcsvor-WED Tab] 1 each PO BID 03/22/18 [History] Allergy/AdvReac Type Severity Reaction Status Date / Time Sulfa (Sulfonamide Allergy Rash Verified 03/22/18 13:17 Antibiotics) All Systems PM: A 10-system review of systems was performed and is negative for pertinent findings except as documented above in the HPI. Review of systems: Review of systems from her September 2016 [facility] hospitalization were reviewed and revised as below. Gen.: Her weight decreased from 53.099 kg September 2013 to 50.349 kg September 2016 but has risen to 62.142 kg on admission now. Cardiovascular: She has not had hypertension heart failure DE DVT or pulmonary embolus. Respiratory: She is a lifelong nonsmoker and has no documented chronic lung disease GI: There is no known disorder of her liver gallbladder or exocrine pancreas : She has had UTIs in the past but no other significant kidney or bladder disorders Neurologic: As per history of present illness Endocrine: She has hypothyroidism and hyperlipidemia but no known diabetes. Hematology/oncology: There is no known blood disorders cancers or anemia Psychiatric: There is no known anxiety depression or other mental health issues Musk skeletal: She has DJD but no known gout or osteoporosis. She had left hip fracture repair approximately 2007. She had inferior pubic ramus fracture and bilateral wrist fractures in the past from falls. - Constitutional Vitals: Temp Pulse Resp BP Pulse Ox 98.0 F 82 16 173/77 93 03/23/18 08:11 03/23/18 08:11 03/23/18 08:11 03/23/18 08:11 03/23/18 08:11 Exam: Gen.: She is a well-developed well-nourished female resting comfortably in bed who appears in no acute distress at present time HEENT: Head is atraumatic normocephalic. Eyes: EOMI. There is no scleral icterus. Mouth: Mucosa is moist. Neck: Supple and nontender. There is no thyromegaly or adenopathy noted. Heart: Regular without murmurs gallops or ectopics Lungs: No wheezes or crackles are heard. Abdomen: Soft and nontender. No masses or guarding are noted. Extremities: There is no cyanosis edema or clubbing noted. Dorsalis pedis and posttibial pulses are trace to 1+ palpable bilaterally. Her feet are warm to touch. Neurologic: Mental status: She is talkative and a good historian. Cranial nerves: Smile is symmetric. Forehead wrinkles bilaterally. Tongue protrudes midline. EOMI. Motor: There is no pronator drift. Ankle flexion and extension strength against resistance is symmetric. She is able lift both legs off the bed. Rapid finger movement is intact symmetrically. Cerebellar: Finger to nose is intact bilaterally. Skin: Warm and dry Internal Med - H&P Results - Labs CBC & Chem 7: 03/22/18 14:08 03/22/18 14:08 Labs: Cardiac Enzymes 03/22/18 03/23/18 03/23/18 Range/Units 19:53 02:15 08:16 Troponin I < 0.03 < 0.03 < 0.03 (< 0.04) ng/mL Urine 03/22/18 Range/Units 15:25 Urine Color Yellow (Yellow) Urine Clarity Clear (Clear) Urine pH 7.0 (5.0-8.0) pH Units Ur Specific Peyton 1.020 (1.010-1.025) Urine Protein Negative (Neg-Trace) mg/dL Urine Glucose (UA) Normal (Normal) mg/dL - Impressions ITS Impressions Chest X-Ray 03/22/18 13:43 IMPRESSION: 1. Mild bibasilar opacification, which was really represent atelectasis. 2. Otherwise, no convincing acute cardiopulmonary abnormality. D/ / Deandre Singleton MD / Deandre Singleton MD Interpreting Provider: Deandre Singleton MD Head CT 03/22/18 13:43 IMPRESSION: No acute intracranial abnormality. Age related changes including chronic small vessel ischemic disease and cerebral atrophy. D/ / Jael Whitley MD / Jael Whitley MD Interpreting Provider: Jael Whitley MD
--- NOTE | 2018-03-23 15:44 | Discharge Summary ---
Date of Encounter: 03/23/18 Time of Encounter: 15:05 - Discharge Diagnosis (1) TIA (transient ischemic attack) Priority: Primary Status: Resolved (2) Hypothyroid Priority: Secondary Status: Chronic Qualifiers: Hypothyroidism type: acquired Qualified Code(s): E03.9 - Hypothyroidism, unspecified Hospital course: Ms. Mayberry is a 87 year old female who was [facility] emergency room after [facility] staff reported her to have had slurred speech. No other focal deficits were noted. She was evaluated in emergency room and was felt to have possible TIA. She was admitted to [facility] for ongoing care needs. Initial orders were written by the emergency room physician. I saw her on March 23 and performed a history physical and discharge. She was given Plavix in emergency room. Aspirin was continued. By the time I saw her on March 23 she had returned to her baseline status and was asymptomatic. Carotid Doppler studies were ordered and showed nonstenotic bilateral plaques per preliminary report. She wished to be discharged back to the SNF which I feel is reasonable. I will follow with her there. She will continue with aspirin and Plavix. - Time Spent with Patient Total time spent providing and/or coordinating discharge services: - Discharge Medications Home Medications: Docusate Sodium [Stool Softener] 100 mg PO BID PRN 04/10/15 [History] Acetaminophen [Non-Aspirin] 650 mg PO Q4H PRN 03/04/17 [History] Levothyroxine [Synthroid] 125 mcg PO 0630 03/04/17 [History] Magnesium Hydroxide [Milk of Magnesia] 30 ml PO DAILY PRN 03/04/17 [History] Ondansetron HCl [Zofran] 4 mg PO Q4H PRN 03/04/17 [History] Aspirin [Lo-Dose Aspirin EC] 81 mg PO DAILY 03/22/18 [History] Gluc/Ap-MSM#2/C/D3/Uziel/Born [Pjpdtobome-Klctfweooac-XUU Tab] 1 each PO BID 03/22/18 [History] Bumetanide [Bumex] 0.5 mg PO Q48H #0 03/23/18 [Rx] Clopidogrel [Plavix] 75 mg PO DAILY tablet 03/23/18 [Rx] Allergies/Adverse Reactions: Allergy/AdvReac Type Severity Reaction Status Date / Time Sulfa (Sulfonamide Allergy Rash Verified 03/22/18 13:17 Antibiotics) Date of admission: 03/22/18 16:35 Primary care physician: Gordon Vasquez MD - Constitutional Vitals: Temp Pulse Resp BP Pulse Ox 98.0 F 82 16 173/77 93 03/23/18 08:11 03/23/18 08:11 03/23/18 08:11 03/23/18 08:11 03/23/18 08:11 - Patient Status Disposition: Transfer SNF Condition: Fair - Discharge Instructions Follow Up With: Gordon Vasquez MD [Primary Care Provider] - 1 week - Diet and Activity Activity: resume usual activities as tolerated Diet: advance to your usual diet
== END 2018-03-23 17:34 ==
LOC: INPPIK 13:12 → EMEROOPIK 13:12 → INPPIK 18:16
PROVIDERS: ADMIT Internal Medicine; ATTEND Internal Medicine